=== PATIENT | male | born 1985 | race Caucasian/White ===

== ENCOUNTER 2022-05-06 21:41 | Emergency (ER) | payer MEDICAID ==
[2022-05-06 21:56] VITALS: BP 139/86
--- NOTE | 2022-05-06 21:56 | ED Physician Documentation ---
PD HPI ABD PAIN - Stated complaint Stated Complaint: LT LLQ PX - Chief complaint Chief Complaint: Back Pain - History obtained from History obtained from: Patient - Additional information Additional information: HPI from patient. Patient complains of left flank pain, episodic over the past month, with tonight's episode occurring a few hours prior to arrival. There have been no noted inciting events nor circumstances with these episodes, and there are no exacerbating or ameliorating factors. The pain is localized to the left flank and the left lower to mid para lumbar area. He denies injury, rash, weakness, numbness. He denies dysuria, hematuria.He denies nausea, vomiting. He denies fevers. Review of Systems Constitutional: denies: Fever GI: denies: Abdominal Pain, Nausea, Vomiting : denies: Dysuria, Frequency, Unable to Void, Incontinent, Hematuria Skin: denies: Rash Musculoskeletal: reports: Back pain. denies: Neck pain Neurologic: denies: Focal weakness, Numbness PD PAST MEDICAL HISTORY - Past Medical History Past Medical History: No - Past Surgical History Past Surgical History: No - Present Medications Home Medications: Ambulatory Orders Medication Instructions Recorded Confirmed No Known Home Medications 05/06/22 05/06/22 - Allergies Allergies/Adverse Reactions: Allergies Allergy/AdvReac Type Severity Reaction Status Date / Time No Known Drug Allergies Allergy Verified 05/06/22 21:56 PD ED PE NORMAL - Vitals Vital signs reviewed: Yes - General General: Alert and oriented X 3, No acute distress, Well developed/nourished - Cardiac Cardiac: RRR, No murmur - Respiratory Respiratory: No respiratory distress, Clear bilaterally - Abdomen Abdomen: Soft, Non tender, Non distended - Back Back: No CVA TTP, No spinal TTP - Derm Derm: No rash - Extremities Extremities: No edema Results - Vitals Vitals: Oxygen O2 Source Room air - Labs Labs: Laboratory Tests 05/06/22 05/06/22 05/06/22 21:50 22:09 22:09 WBC 7.6 RBC 4.86 Hgb 13.1 L Hct 42.2 MCV 86.8 MCH 27.0 MCHC 31.0 L RDW 13.6 Plt Count 306 MPV 8.9 Neut # (Auto) 4.8 Lymph # (Auto) 1.9 [place] # (Auto) 0.8 Eos # (Auto) 0.1 Baso # (Auto) 0.1 Absolute Nucleated RBC 0.00 Nucleated RBC % 0.0 Sodium 140 Potassium 4.1 Chloride 103 Carbon Dioxide 29 Anion Gap 8.0 BUN 19 Creatinine 1.0 Estimated GFR (MDRD) 85 L Glucose 101 H Calcium 8.8 Urine Color YELLOW Urine Clarity CLEAR Urine pH 7.0 Ur Specific [place] 1.020 Urine Protein NEGATIVE Urine Glucose (UA) NEGATIVE Urine Ketones NEGATIVE Urine Occult Blood NEGATIVE Urine Nitrite NEGATIVE Urine Bilirubin NEGATIVE Urine Urobilinogen 0.2 (NORMAL) Ur Leukocyte Esterase NEGATIVE Ur Microscopic Review NOT INDICATED - Rads (name of study) CT A/P without contrast Relevant Findings:: Prelim report reviewed, EMP independent interpretation of test (I reviewed this study/these images, I do not see any contributory abnormality, no radiographic evidence of the cause of his left flank pain. Specifically, I do not see any evidence of ureterolithiasis, hydronephrosis.), See rad report PD Medical Decision Making - ED course Complexity details: reviewed results, re-evaluated patient, considered differential, d/w patient ED course: Tests ordered and results reviewed by me: CBC, ER abdominal panel, urinalysis, CT abdomen and pelvis. There are no significant nor diagnostic findings on the blood tests, and the urinalysis is normal. CT results as above, no evidence on these tests regarding the etiology of patient's symptoms. Results reviewed with patient. At this time, further emergent study is not indicated but I advised him to follow-up with his primary care provider, as further outpatient tests might be of benefit depending on the symptom pattern and whether other signs/symptoms appear. Musculoskeletal low back pain is considered within the differential at this time. Departure - Departure Disposition: 01 Home, Self Care Clinical Impression: Flank pain, acute Condition: Good Instructions: ED Flank Pain Uncertain Cause Comments: There were no concerning or diagnostic findings on tonight's tests, including blood test, urinalysis, and the CAT scan of your abdomen and pelvis. Thus, the cause of your symptoms is not apparent at this time. There is no evidence of an infectious process such as a urinary tract infection or kidney infection, no evidence of an obstructive process such as a kidney stone that is causing blockage. As we discussed, there is a small (2 mm) kidney stone with in the left kidney which, by definition, is not causing any symptoms and is thus an incidental finding. Also, the CT showed diverticulosis which is a common finding and would not cause any symptoms. As we discussed, I recommend that you contact your insurance provider to inquire as to how to set up with a local primary care provider. Discharge Date/Time: 05/07/22 00:10
[2022-05-06 22:04] LABS: BILIRUBIN,URINE NEGATIVE (NEGATIVE); GLUCOSE, URINE (UA) NEGATIVE (NEGATIVE); KETONES,URINE (UA) NEGATIVE (NEGATIVE); LEUKOCYTE ESTERASE, URINE NEGATIVE (NEGATIVE); NITRITE,URINE NEGATIVE (NEGATIVE); OCCULT BLOOD,URINE NEGATIVE (NEGATIVE); PROTEIN,URINE NEGATIVE (NEGATIVE); UROBILINOGEN,URINE 0.2 (NORMAL) E.U./dL (NORMAL)
[2022-05-06 22:05] LABS: CLARITY,URINE CLEAR (CLEAR)
[2022-05-06 22:20] LABS: BASOPHILS # (AUTO) 0.1 10^3/uL (0.0-0.1); BASOPHILS % (AUTO) 0.8 %; EOSINOPHILS # (AUTO) 0.1 10^3/uL (0.0-0.7); EOSINOPHILS % (AUTO) 1.2 %; HCT - HEMATOCRIT 42.2 % (42.0-52.0); HGB - HEMOGLOBIN 13.1 g/dL (14.0-18.0); LYMPHOCYTES # (AUTO) 1.9 10^3/uL (1.5-3.5); LYMPHOCYTES % (AUTO) 24.6 %; MEAN CORPUSCULAR VOLUME 86.8 fL (80.0-94.0); MEAN PLATELET VOLUME 8.9 fL (7.4-11.4); MONOCYTES # (AUTO) 0.8 10^3/uL (0.0-1.0); MONOCYTES % (AUTO) 9.8 %; NEUTROPHILS # (AUTO) 4.8 10^3/uL (1.5-6.6); NEUTROPHILS % (AUTO) 63.3 %; PLT - PLATELET COUNT 306 10^3/uL (130-450); RED BLOOD COUNT 4.86 10^6/uL (4.70-6.10); RED CELL DISTRIBUTION WIDTH 13.6 % (12.0-15.0); WHITE BLOOD COUNT 7.6 x10^3/uL (4.8-10.8)
[2022-05-06 22:25] LABS: CALCIUM 8.8 mg/dL (8.5-10.3); POTASSIUM 4.1 mmol/L (3.5-5.0)
--- NOTE | 2022-05-06 23:23 | CT Report ---
PROCEDURE: ABDOMEN/PELVIS WO INDICATIONS: left flank pain TECHNIQUE: Noncontrast 5 mm thick sections acquired from the diaphragms to the symphysis. 5 mm coronal and sagi ttal reformats were then performed. For radiation dose reduction, the following was used: automated exposure control, adjustment of mA and/or kV according to patient size. COMPARISON: None. FINDINGS: Image quality: There is motion artifact limiting evaluation. Lung bases:The visualized lung bases are clear. Heart: Heart is normal in size. URINARY: Right Kidney and Ureter: No stones or hydronephrosis. No hydroureter. Left Kidney and Ureter: There is a 0.2 cm nonobstructing left renal stone. No hydronephrosis. No h ydroureter. Bladder: Normal wall thickness. No stones. ABDOMEN: Liver: Noncontrast evaluation of the liver demonstrates no discrete mass. Gallbladder: Within normal limits without calcified gallstones. Biliary ducts: No biliary ductal dilatation. Pancreas: Unremarkable. Spleen: Normal in size. Adrenal Glands: No adrenal nodules. Stomach and Bowel: Stomach, small bowel loops, and colon are normal in caliber and wall thickness. T he appendix is within normal size limits without evidence of acute appendicitis. There are a few smal l internal appendicoliths. There is colonic diverticulosis without acute radiculitis. Peritoneum: No abnormal intraperitoneal fluid. No free air. Ventral Wall: No hernia. Abdominal Nodes: No retroperitoneal or mesenteric adenopathy by size criteria. Vessels: Aorta and inferior vena cava are normal in size. PELVIS: Pelvic Organs: Unremarkable. Pelvic Nodes: No enlarged lymph nodes. Miscellaneous: No inguinal hernias identified. Bones: Visualized osseous structures demonstrate no suspicious focal lesions. IMPRESSION: 1. Left nephrolithiasis without evidence of obstructive uropathy. 2. Colonic diverticulosis without acute diverticulitis. 3. No evidence of appendicitis. Reviewed by: Donnie Mercedes MD on 05/06/2022 11:34 PM PDT Approved by: Donnie Mercedes MD on 05/06/2022 11:34 PM PDT Station ID: [id number]
== END 2022-05-07 00:10 | disposition home or self-care (01) ==
LOC: ED 21:41
DX: R10.32 Left lower quadrant pain (principal)
CPT/HCPCS: 36415; 80048; 81001; 81003; 85025; 99283; 99284